=== PATIENT | male | born 1935 | race Caucasian/White ===

== ENCOUNTER 2019-03-25 08:50 | Day surgery (SDC) | payer MEDICARE, BC ==
[~2019-03-25] VITALS: Ht 177.8 cm; Wt 89.9 kg
[2019-03-25] VITALS (14 sets, daily range): BP systolic 158–178; BP diastolic 58–97; PULSE 20–69; TEMP 98.3
[2019-03-25] MEDS ORDERED: NOVOLOG 100U100 U/M1 SQ (09:47)
[2019-03-25] MEDS ORDERED: LANTUS100 U/ML SQ (09:48)
[2019-03-25] MEDS ORDERED: ELIQUIS 5MG PO (09:48)
[2019-03-25] MEDS ORDERED: IMDUR 30MG30 MG/TAB PO (09:50)
[2019-03-25] MEDS ORDERED: REQUIP 0.5MG0.5 MG PO (09:51)
[2019-03-25 09:52] LABS: HEMOGLOBIN 10.4 g/dl (13.5-18.0); MEAN CELL VOLUME 88 fl (80.0-100.0); MEAN CORPUSCULAR HEMOGLOBIN 28 pg (27.0-31.0); MEAN CORPUSCULAR HGB CONC 32 g/dl (33.0-37.0); PLATELET COUNT 165 K/mm3 (130-400); REDCELL DISTRIBUTION WIDTH-CV 15.9 % (11.5-14.5)
[2019-03-25] MEDS ORDERED: ZANTAC 150MG T150 MG PO (09:52)
[2019-03-25] MEDS ORDERED: LASIX 40MG TABL40 MG PO (09:52)
[2019-03-25] MEDS ORDERED: LIPITOR 80MG80 MG PO (09:53)
[2019-03-25] MEDS ORDERED: AMBIEN 5MG TABLE5 MG PO (09:54)
[2019-03-25] MEDS ORDERED: NITROSTAT0.4 MG/TAB SL (09:55)
[2019-03-25] MEDS ORDERED: ULTRAM 50MG TAB50 MG PO (09:55)
[2019-03-25 09:56] LABS: HEMATOCRIT 32.6 % (42.0-52.0); INR 1.1 (0.8-3.0); PROTHROMBIN TIME 12.6 SECONDS (9.7-12.8)
[2019-03-25] MEDS ORDERED: PROAIR HFA0.09 MG/AC IH (09:56)
[2019-03-25 10:01] LABS: CREATININE, serum 1.96 (0.66-1.25); POTASSIUM 4.3 mmol/L (3.4-5.0)
--- NOTE | 2019-03-25 10:30 | NUR ---
To lab assistant at 1034 via stretcher, report to car barn laborer RN.
--- NOTE | 2019-03-25 10:54 | NUR ---
ALL MEDICATIONS GIVEN VORB WITH MD. SEE MERGE FOR ALL MEDICATION ADMIN TIMES. SEE MERGE FOR ALL RASS ASSESSMENTS DURING AND POST PROCEDURE.
[2019-03-25] MEDS ORDERED: NORVASC2.5 MG PO (13:09)
--- NOTE | 2019-03-25 13:20 | NUR ---
Patient transported back to room 14 at this time. Patient hooked back up to monitoring equipment. VS stable. Patient denies any pain at this time. Melody, RN and Milagro RN at bedside. Visualized right femoral vein and artery with RNs. Femstop remains in place with 30 mmHg as a precaution for venous puncture. Site is clean, dry, and intact. Site soft and nontender. Patient has intermittent muscle spasms and restless legs. Pedal pulses by Doppler. Discussed importance of flat time and keeping leg straight and head down on pillow with patient and daughter. Bed in lowest and locked position, call light within reach.
--- NOTE | 2019-03-25 13:26 | NUR ---
Pt back from laboratory scientist, report revceived from Leonardo QUEZADA. femstop in place to rt groin at 30 mm hg, no bleeding or oozing noted at this point. pulses intact. pt awake and alert, on room air good sats, pt aware of plan for 6 hrs bedrest, restless legs bothering patient. with reposition as able, put a pillow under left leg, warm blankets applied. wctm.
--- NOTE | 2019-03-25 15:47 | NUR ---
Pt resting more comfortably, has been able to sleep intermittently, daughter at bs. femstop that was applied prior to pt's return to [facility] for monitoring remains in place as ordered. 30 mm hg... venous and arterial access points visible, no bleeding noted since [facility]. pulses remain intact.
--- NOTE | 2019-03-25 17:45 | NUR ---
Report given to Rain Jacobs RN who assumed care at this time.
--- NOTE | 2019-03-25 17:53 | NUR ---
Pt tolerating bedrest well, despite restless legs. fem stop was released at approx 1745, sterile 4x4 dressing with tegaderm applied to site. there is some bruising lateral to the punctures, no bleeding or hematoma. pulses intact. pt hob elevated to 25 deg, pt using urinal.
--- NOTE | 2019-03-25 18:34 | NUR ---
With okay from Loulou MARTINEZ, a 30 day supply of norvasc 2.5 mg daily was called in to [facility] pharmacy in [place].
--- NOTE | 2019-03-25 18:55 | NUR ---
Melody RN giving discharge instructions. Six hour flat time done @ 2535.
--- NOTE | 2019-03-25 19:19 | NUR ---
Pt was released from bedrest at 1830, his groin remains soft without bleeding or hematoma, there remains a small bruise lateral to punctures. Pt was given dc instructions, he visualized his site and palpated to establish a baseline. cms remains intact to his extremities. pt instructed to hold pressure at site for next few days while standing and sittind or similarly changing position. PT ambulatory, p,w,d, aao x 4. escorted to exit via wheelchair with daughter.
== END 2019-03-25 19:22 | disposition home or self-care (01) ==
LOC: COL.CAR 08:50
PROVIDERS: Internal Medicine Cardiovascular Disease
DX: I25.10 Atherosclerotic heart disease of native coronary artery without angina pectoris (principal); Z95.0 Presence of cardiac pacemaker; I27.20 Pulmonary hypertension, unspecified; G47.33 Obstructive sleep apnea (adult) (pediatric); Z88.5 Allergy status to narcotic agent
CPT/HCPCS: J0153; J1644; J2250; J3010